=== PATIENT | female | born 1975 | race Caucasian/White ===

== ENCOUNTER → 2019-08-11 11:46 | Outpatient (CLI) | payer OTHER, SELFPAY | PROVIDERS: Visit Provider Obstetrics & Gynecology | DX: O03.9 Complete or unspecified spontaneous abortion without complication (principal) | CPT/HCPCS: 36415; 86850 ==

== ENCOUNTER → 2020-07-14 10:59 | Outpatient (CLI) | payer OTHER, SELFPAY ==
[2020-07-14 12:55] LABS: HCG Quantitative /Beta subunit 2376.6 mIU/mL
== END ==
PROVIDERS: PCP Obstetrics & Gynecology; Referring Provider Obstetrics & Gynecology; Visit Provider Obstetrics & Gynecology
DX: O20.0 Threatened abortion (principal)
CPT/HCPCS: 36415; 84702